=== PATIENT | female | born 1995 | race Hispanic/Latino ===

== ENCOUNTER 2023-05-27 07:57 | Day surgery (SDC) | payer OTHER ==
[~2023-05-27] VITALS: Ht 160 cm; Wt 81.6 kg
[2023-05-27] VITALS (10 sets, daily range): BP systolic 118–148; BP diastolic 74–87
[~2023-05-27 07:57] MED LIST: AMOXICILLIN500 MG OR; AUGMENTIN500 MG OR; AZITHROMYCIN250 MG OR; CORTISPORIN OP3.5 GM OP; PRED FORTE1 % OP; PREDNISODT15 OR
[2023-05-27 08:48] LABS: BASO% 0.2 % (0-3); EOS% 1.6 % (0-8); HEMATOCRIT 37.2 % (37.0-47.0); HEMOGLOBIN 11.8 g/dl (12.0-16.0); IMMATURE GRANULOCYTES 0.2 % (0.0-5.0); LYMPH% 26.9 % (15-41); MEAN CELL VOLUME 85.3 fL CALC (80.0-100.0); MEAN CORPUSCULAR HGB 27.1 pG CALC (26.0-32.0); MEAN CORPUSCULAR HGB CONC 31.7 g/dL CAL (32.0-36.0); MONO% 5.6 % (2-13); NEUT# 3.26 thou/uL (2.00-7.15); NEUT% 65.5 % (42-76); RED BLOOD COUNT 4.36 mill/uL (4.20-5.60); RED CELL DISTRI WIDTH 14.9 % (11.5-15.5)
[2023-05-27 08:53] LABS: HCG SERUM/URINE (NEG/POS) NEGATIVE (NEGATIVE)
[2023-05-27 09:08] LABS: ALBUMIN 3.9 g/dL (3.2-5.0); ANION GAP 10 (6-22 (CALC)); BUN 14 mg/dL (7-17); BUN/CREATININE RATIO 20 (12-20 (CALC)); CARBON DIOXIDE 27 mmol/l (22-30); CHLORIDE 105 mmol/l (95-108); CREATININE 0.7 mg/dL (0.5-1.0); GFR FOR AFR.AMER. > 60 ML/MIN (>=60 (CALC)); GFR OTHER RACES > 60 ML/MIN (>=60 (CALC)); LIPASE 105 u/l (23-300); SODIUM 138 mmol/l (137-146); TOTAL PROTEIN 7.2 g/dL (6.3-8.2)
[2023-05-27 09:22] LABS: ALKALINE PHOSPHATASE 184 u/l (38-126); BILIRUBIN, TOTAL 1.3 mg/dL (0.02-1.3); SGOT/AST 320 u/l (14-36)
[2023-05-27 09:58] LABS: URINE BILIRUBIN - DIPSTICK Negative (NEGATIVE); URINE BLOOD DIPSTICK Negative (NEGATIVE); URINE GLUCOSE - DIPSTICK Negative (NEGATIVE); URINE KETONE Negative (NEGATIVE); URINE LEUK ESTERASE Negative (NEGATIVE); URINE NITRITE - DIPSTICK Negative (Negative); URINE PROTEIN - DIPSTICK Negative (NEG-TRACE); URINE SPECIFIC GRAVITY 1.015; URINE UROBILINOGEN - DIPSTICK 0.2 E.U./dL (0.2)
[2023-05-27 09:59] LABS: URINE COLOR Yellow
[2023-05-27] MEDS ORDERED: PERCOCET 5/325M1 TAB PO (14:20)
== END 2023-05-27 16:20 | disposition home or self-care (01) | DRG 417 ==
LOC: ED 07:57 → ED-I 10:54 → ED 11:06 → ORM 11:07
PROVIDERS: Family Medicine; ATTEND Surgery
PROC: 0FT44ZZ Resection of Gallbladder, Percutaneous Endoscopic Approach (ICD-10-PCS; principal; 2023-05-27)
DX: K80.12 Calculus of gallbladder with acute and chronic cholecystitis without obstruction (principal); U07.1 COVID-19
CPT/HCPCS: J0131; J0690; J1610; Q9966